=== PATIENT | male | born 2000 | race Caucasian/White ===

== ENCOUNTER 2024-01-11 09:56 | Emergency (ER) | payer SELFPAY ==
[~2024-01-11] VITALS: Ht 175.3 cm; Wt 66.0 kg
[2024-01-11 10:00] VITALS: TEMP 98.2; O2SAT 98
[2024-01-11 10:37] LABS: CHLORIDE 102 mEq/L (98-107); POTASSIUM 3.8 mEq/L (3.5-5.1); SODIUM 140 mEq/L (136-145)
[2024-01-11 10:38] LABS: CALCIUM 10.3 mg/dL (8.7-10.4); CARBON DIOXIDE 14 mEq/L (21-32)
[2024-01-11 10:43] LABS: CREATININE 1.1 mg/dL (0.6-1.3); GLUCOSE 112 mg/dL (70-105); UREA NITROGEN BLOOD 14 mg/dL (9-23)
[2024-01-11] MEDS: LEVETIRACETAM 500MG PREMIX 100 ML IV ONE (10:50)
[2024-01-11 11:07] LABS: BASOPHILS % 0.5 % (0.0-2.0); HEMATOCRIT. 39.1 % (42.0-52.0); HEMOGLOBIN. 13.3 g/dL (14.0-18.0); LYMPHOCYTES % 17.3 % (20.0-50.0); MEAN CORPUSCULAR HEMOGLOBIN 30.8 pg (28.0-32.0); MEAN CORPUSCULAR VOLUME 90.6 fL (80.0-94.0); MEAN PLATELET VOLUME 8.4 fl (7.4-10.4); MONOCYTES % 7.2 % (2.0-8.0); PLATELET 255 x1000/uL (130-400); RED BLOOD CELL COUNT 4.32 mill/uL (4.7-6.1); RED CELL DISTRIBUTION WIDTH 13.7 % (11.6-14.6); WHITE BLOOD COUNT 7.1 x1000/uL (4.5-11.0)
[2024-01-11 11:09] LABS: CLARITY URINE CLEAR (CLEAR); COLOR URINE YELLOW (YELLOW); GLUCOSE URINE NEGATIVE (NEGATIVE); KETONES URINE NEGATIVE (NEGATIVE); LEUKOCYTE ESTERASE URINE NEGATIVE (NEGATIVE); NITRITE URINE NEGATIVE (NEGATIVE); OCCULT BLOOD URINE NEGATIVE (NEGATIVE); PH URINE 5.5 (4.5-8.0); PROTEIN URINE TRACE (NEGATIVE); SPECIFIC GRAVITY URINE 1.014 (1.005-1.030); UROBILINOGEN URINE 0.2 E.U./dL (0.2-1.0)
[2024-01-11] MEDS ORDERED: KEPP500 MT (11:29)
[2024-01-11 11:32] LABS: BACTERIA URINE FEW; RBC URINE NONE SEEN /hpf (0-2); SQUAMOUS EPITHELIAL CELL URINE RARE /lpf (RARE/1+); YEAST URINE NONE SEEN
[2024-01-11 12:11] VITALS: BP 109/62; PULSE 69; RESP 16; O2SAT 99
== END 2024-01-11 12:12 | disposition home or self-care (01) ==
LOC: EDBD 10:08 → ER 10:08
DX: G40.909 Epilepsy, unspecified, not intractable, without status epilepticus (principal); F12.10 Cannabis abuse, uncomplicated
CPT/HCPCS: 80048; 81003; 85025; 36415; 96365; 99284; J1953; Z7610